=== PATIENT | female | born 1995 | race Caucasian/White ===

== ENCOUNTER 2020-02-26 14:54 | Emergency (ER) | payer MEDICAID, SELFPAY ==
[2020-02-26 14:58] VITALS: BP 136/88; PULSE 137; RESP 14; TEMP 37; O2SAT 100
--- NOTE | 2020-02-26 15:05 | ED.GENADUL_ITS ---
Discharge Plan Disposition Patient Disposition: HOME Condition: Good Discharge Details Chief Complaint: RashLesion Clinical Impression: Contact dermatitis Primary Care Provider: None,None ED Provider: Addison Nowak Home Meds and New Rx's Prescriptions: New diphenhydramine HCl [Benadryl] 25 MG capsule 25 mg PO Q6H Qty: 100 RF: 0 hydrocortisone 1 % cream 1 applic TP TID PRNQty: 14.2 RF: 0 prednisone 50 MG tablet 50 mg PO DAILY Qty: 5 RF: 0 Discharge Instructions Instructions: Contact Dermatitis (ED), Poison Opal (ED) Additional Instructions: At this time your symptoms are concerning for contact dermatitis. I suspect while gardening yesterday you likely came into contact with oil-based substance from an irritant plant. Please make sure to wash all your clothes in hot water, with extra/double the detergent is normal. Please use the cream to the affected areas as directed, please take the medication prednisone as directed. Please continue take the Benadryl, however if you find that this makes you too sleepy you can take 10 mg of loratadine [id number] if needed as an a lternative. If your symptoms do not improve with this therapy you may require prompt reassessment and potential prolonged course of steroid medications. If you notice any worsening of your symptoms, or any new symptoms such as vomiting, diarrhea, fever, chills, shortness of breath, chest pain, numbness, weakness, or fainting , please return immediately to the emergency department for reevaluation. Please follow up with your primary care provider as soon as possible for reassessment and reevaluation. As always, it was a pleasure participating in your medical care today. Medical Decision Making 24-year-old female with no significant past medical history who presents today for evaluation of a rash. Patient states that she was out working in her garden yesterday, then last evening she began to get some itchiness on her right hand and wrist, and this morning it was slightly on her abdomen and on her left cheek. She has been taking Benadryl and this is slightly helped with the itching. She denies any symptoms of cough, nausea, vomiting, diarrhea, shortness of breath, difficulty swallowing, or difficulty breathing. She denies any other complaints, no other modifying factors. She denies any history of allergies. No other complaints at this time. Physical exam shows small hive-like lesions over the patient's right wrist, hand, left face, and left anterior abdomen. Minimal in nature. No evidence of significant systemic abnormality. No other concerning physical exam abnormalities, no oral lesions. Signs and symptoms are clinically consistent with contact dermatitis, likely secondary to contact with oil-based emollient from potentially poison opal or other abnormal plan. Will give topical and oral steroids, recommend continue diphenhydramine, close follow-up. Discussed red flags which to return. No evidence of anaphylaxis. I have extensively reviewed the treatment plan and discharge instructions with the patient. I have addressed all patient concerns at this time. The patient was made aware of what symptoms to monitor for that would warrant a return to the emergency department. Discussed the plan with the patient, they demonstrate verbal understanding and agreement with our assessment and plan at this time. HPI General Date/Time Provider Initiated Documentation: 02/26/20 14:55 . HPI Narrative: 24-year-old female with no significant past medical history who presents today for evaluation of a rash. Patient states that she was out working in her garden yesterday, then last evening she began to get some itchiness on her right hand and wrist, and this morning it was slightly on her abdomen and on her left cheek. She has been taking Benadryl and this is slightly helped with the itching. She denies any symptoms of cough, nausea, vomiting, diarrhea, shortness of breath, difficulty swallowing, or difficulty breathing. She denies any other complaints, no other modifying factors. She denies any history of allergies. No other complaints at this time. Related Data Home Medications Medication Instructions Recorded Confirmed diphenhydramine HCl [Benadryl] 25 mg PO Q6H #100 cap 02/26/20 hydrocortisone 1 applic TP TID PRN #14.2 gm 02/26/20 prednisone 50 mg PO DAILY #5 tab 02/26/20 Previous Rx's Medication Instructions Recorded diphenhydramine HCl [Benadryl] 25 mg PO Q6H #100 cap 02/26/20 hydrocortisone 1 applic TP TID PRN #14.2 gm 02/26/20 prednisone 50 mg PO DAILY #5 tab 02/26/20 Allergies Allergy/AdvReac Type Severity Reaction Status Date / Time No Known Allergies Allergy Unverified 02/26/20 15:05 General Stated Complaint: RashLesion VINCENZO: 4 Review of Systems All systems reviewed & are unremarkable except as noted in HPI and below PFSH Social History Smoking/Tobacco Use Status: Never Alcohol Intake: current Alcohol Intake frequency: holidays/special occasions only Drug use: Never Do you feel safe at home: Yes Exam Narrative Exam Narrative: 1.Const: Well-nourished, Well-developed, appearing stated age 2.Eyes: PERRL, no conjunctival injection, and symmetrical lids. 3.ENT: Atraumatic external nose and ears. Moist MM. Neck: Symmetric, trachea midline, No thyromegaly. No evidence of swelling in the posterior oropharynx. No signs of angioedema. No signs of airway compromise. 4.CVS: +S1/S2, No murmurs or gallops. Peripheral pulses 2+ and equal in all extremities. Brisk capillary refill in all extremities. 5.RESP: Unlabored respiratory effort. Clear to auscultation bilaterally. No wheezes rales or rhonchi, no stridor. 6.GI: Soft, Nontender/Nondistended, No hepatosplenomegaly. No guarding or rebound. 7.MSK: Normocephalic/Atraumatic, Extremities w/o deformity or ttp No cyanosis or clubbing, Normal movement of all extremities 8.Skin: Warm, dry irritated small hive-like lesions on the patient's right thenar eminence, right wrist, 2 or 3 lesions on the anterior stomach, and the left cheek. Negative Nikolsky sign. No large vesicles or bulla. No palpable purpura. No oral lesions. No mucosal lesions. No evidence of severe cellulitis. No evidence of vaccine preventable rash. 9.Neuro: senior qa tester II-XII grossly intact. Sensation grossly intact, no focal neurologic deficits. 10.Psych: (AAO) x3. Appropriate mood and affect Course Vital Signs Vital signs: Vital Signs Temperature 37 C 02/26/20 14:58 Pulse 137 H 02/26/20 14:58 Respiratory Rate 14 02/26/20 14:58 Blood Pressure 136/88 02/26/20 14:58 Pulse Oximetry 100 02/26/20 14:58 Temperature 37 C 02/26/20 14:58 Temperature Source Skin 02/26/20 14:58 Pulse 137 H 02/26/20 14:58 Respiratory Rate 14 02/26/20 14:58 Blood Pressure 136/88 02/26/20 14:58 Blood Pressure Position Sitting 02/26/20 14:58 Pulse Oximetry 100 02/26/20 14:58 Oxygen Delivery Method Room Air 02/26/20 14:58 Oxygen Flow Rate 0 02/26/20 14:58 Comment has not eaten all day - mucous membranes are dry 02/26/20 14:58
[2020-02-26 15:13] VITALS: BP 149/91; PULSE 104; RESP 14; O2SAT 99
== END 2020-02-26 15:17 | disposition home or self-care (01) ==
PROVIDERS: Emergency Provider Student in an Organized Health Care Education/Training Program
DX: L25.8 Unspecified contact dermatitis due to other agents (principal)
CPT/HCPCS: 36416; 82962; 99283

== ENCOUNTER 2021-06-22 03:56 | Outpatient (CLI) | payer MEDICAID, SELFPAY ==
[2021-06-22 09:49] LABS: Abs Immature Grans 0.01 10^3/uL (0.0-0.06); Absolute Basophil Count 0.03 10^3/uL (0.0-0.2); Absolute Eosinophil Count 0.15 10^3/uL (0.0-0.7); Absolute Lymphocyte Count 1.83 10^3/uL (1.2-3.4); Absolute Monocyte Count 0.22 10^3/uL (0.1-0.8); Absolute Neutrophil Count 2.37 10^3/uL (1.2-6.7); Basophils % 0.7; Eosinophils % 3.3; HCT 40.7 % (36.0-46.0); HGB 14.1 g/dL (11.2-15.7); Immature Grans % 0.2; Lymphocytes % 39.7; MCH 28.8 pg (27.0-33.0); MCHC 34.6 % (32.0-36.0); MCV 83.2 fL (80-95); MPV 10.7 fL (8.0-11.0); Monocytes % 4.8; Neutrophils % 51.3; Nucleated RBC 0 %; Platelet Count 214 10^3/uL (130-400); RBC 4.89 10^6/uL (3.93-5.22); RDW 11.3 % (11.7-14.6); RDW-SD 34.2 fL; WBC 4.61 10^3/uL (4.4-10.8)
[2021-06-22 11:07] LABS: ALT 17 U/L (14-59); AST 16 U/L (15-37); Albumin 4.4 g/dL (3.4-5.0); Alkaline Phosphatase 80 U/L (46-116); Anion Gap 11.2 mmol/L (3-11); BUN 7 mg/dL (7-18); Bilirubin, Total 0.4 mg/dL (0.2-1.0); CO2 26.8 mmol/L (21.0-32.0); CREATININE 0.9 mg/dL (0.55-1.02); Calcium 9.2 mg/dL (8.5-10.1); Chloride 104 mmol/L (98-107); Glucose 94 mg/dL (74-106); Potassium 3.6 mmol/L (3.5-5.1); Sodium 142 mmol/L (136-145); TSH (W/Ref FT4) 3.14 uIU/mL (0.36-3.74); Total Protein 7.6 g/dL (6.4-8.2); Vitamin B12 1088 pg/mL (193-986)
[2021-06-22 11:15] LABS: Folate > 20.0 ng/mL (8.6-20.0)
[2021-06-23 12:47] LABS: IgA 111 mg/dL (85-499); Interpretation (See Note); Tissue Transglutaminase IgA <1.2 U/mL (<4.0)
== END 2021-06-22 03:57 | disposition home or self-care (01) ==
LOC: LBO 03:56
PROVIDERS: PCP Nurse Practitioner Adult Health; Visit Provider Nurse Practitioner Adult Health
DX: R53.83 Other fatigue (principal); K62.5 Hemorrhage of anus and rectum; F43.9 Reaction to severe stress, unspecified
CPT/HCPCS: 36415; 80053; 82784; 83516; 82607; 82746; 84443; 85025

== ENCOUNTER 2021-07-12 15:43 | Outpatient (REF) | payer MEDICAID, SELFPAY ==
--- NOTE | 2021-07-12 10:13 | PAPFT_PTH ---
PATIENT: Aung Millan LOC: [facility] U#:[id number] AGE/SX: 25/F ROOM: RE07/12/[address]: Zonia Carbajal APRN : 1995 BED: DIS: 07/12/2021 SPEC #: [id number] RECD: 07/12/21 18:33 STATUS: ALICE REQ #: [id number] GENARO: 07/12/21 10:[address]: Zonia Carbajal DEPT: [facility] Cytology RECD BY: Kiersten Briones Tissues: 1 - CX/ENDOCX FOR PAP SMEARS Procedures: PAP THIN PREP/[facility] Screening Comments: [id number]
== END 2021-07-12 15:44 | disposition home or self-care (01) ==
LOC: LBN 15:43
PROVIDERS: PCP Nurse Practitioner Adult Health; Visit Provider Nurse Practitioner Adult Health
DX: Z12.4 Encounter for screening for malignant neoplasm of cervix (principal)
CPT/HCPCS: 88142

== ENCOUNTER 2021-09-15 20:23 | Outpatient (REF) | payer MEDICAID, SELFPAY ==
[2021-09-17 14:23] LABS: COVID-19 RT-PCR UVMMC Result Negative (Negative)
== END 2021-09-15 20:24 | disposition home or self-care (01) ==
LOC: LBN 20:23
PROVIDERS: PCP Nurse Practitioner Adult Health; Visit Provider Internal Medicine
DX: Z20.822 Contact with and (suspected) exposure to COVID-19; R50.9 Fever, unspecified; R59.9 Enlarged lymph nodes, unspecified; K13.79 Other lesions of oral mucosa
CPT/HCPCS: U0003

== ENCOUNTER 2022-06-09 16:38 | Outpatient (REF) | payer SELFPAY ==
[2022-06-09 18:28] LABS: HCG Qual (Serum) Negative
== END 2022-06-09 16:39 | disposition home or self-care (01) ==
LOC: LBN 16:38
PROVIDERS: Student in an Organized Health Care Education/Training Program; PCP Nurse Practitioner Adult Health; Visit Provider Nurse Practitioner Adult Health
DX: Z32.00 Encounter for pregnancy test, result unknown (principal)
CPT/HCPCS: 84703

== ENCOUNTER 2023-06-26 18:24 | Outpatient (REF) | payer MEDICAID, SELFPAY ==
[2023-06-28 13:15] LABS: Chlamydia Result Negative (Negative); GC Result Negative (Negative)
== END 2023-06-26 18:25 | disposition home or self-care (01) ==
LOC: LBN 18:24
PROVIDERS: PCP Nurse Practitioner Adult Health; Visit Provider Nurse Practitioner Family
DX: N30.01 Acute cystitis with hematuria (principal); Z11.3 Encounter for screening for infections with a predominantly sexual mode of transmission; R30.0 Dysuria; N76.0 Acute vaginitis; B96.1 Klebsiella pneumoniae [K. pneumoniae] as the cause of diseases classified elsewhere
CPT/HCPCS: 87077; 87491; 87591; 87086; 87186; 87480; 87510; 87660